=== PATIENT | female | born 1995 | race Caucasian/White ===

== ENCOUNTER 2016-12-18 12:39 | Emergency (ER) | END 2016-12-18 17:05 | disposition home or self-care (01) | DX: S69.91XA Unspecified injury of right wrist, hand and finger(s), initial encounter (principal); W22.8XXA Striking against or struck by other objects, initial encounter; Y92.9 Unspecified place or not applicable | CPT/HCPCS: 73130; Z7502; Z7610 ==

== ENCOUNTER 2017-07-05 00:12 | Emergency (ER) | END 2017-07-05 06:02 | disposition home or self-care (01) ==